=== PATIENT | male | born 1970 | race Caucasian/White ===

== ENCOUNTER 2021-01-29 20:51 | Emergency (ER) | payer BC ==
[~2021-01-29] VITALS: Ht 175.3 cm; Wt 118.2 kg
[~2021-01-29 20:51] MED LIST: ASPI-1265 PO; ATOR10TA87 PO; CYAN500T71 PO; LISI-222 PO; NORCO10T PO; PIOG30TA2 PO; SITA100T15 PO; [UNRECOGNIZED DRUG - SUPPLY] PO
[2021-01-29 22:14] LABS: BASOPHILS % (AUTO) 0.5 % (0-1); EOSINOPHILS # (AUTO) 0.1 X10'3 (0-0.9); HEMATOCRIT 43.6 % (42.0-52.0); HEMOGLOBIN 14.9 g/dl (14.0-17.9); LYMPHOCYTES # (AUTO) 1.3 X10'3 (1.1-4.8); LYMPHOCYTES % (AUTO) 20.4 % (21-51); MEAN CORPUSCULAR HEMOGLOBIN 30.3 PG (27.0-31.0); MEAN CORPUSCULAR HGB CONC 34.2 g/dL (33.0-36.5); MEAN CORPUSCULAR VOLUME 88.5 FL (78-98); MONOCYTES # (AUTO) 0.5 X10'3 (0-0.9); MONOCYTES % (AUTO) 7.2 % (2-12); NEUTROPHILS # (AUTO) 4.5 X10'3 (1.8-7.7); NEUTROPHILS % (AUTO) 70.9 % (42-75); PLATELET COUNT 260 X10'3 (140-440); RED BLOOD COUNT 4.93 X10'6 (4.70-6.10); RED CELL DISTRIBUTION WIDTH 12.8 % (11.5-14.5); WHITE BLOOD COUNT 6.4 X10'3 (4.5-11.0)
[2021-01-29 22:34] LABS: ALANINE AMINOTRANSFERASE 28 U/L (12-78); ALBUMIN 3.8 G/DL (3.4-5.0); ALBUMIN/GLOBULIN RATIO 1.2 (1.1-1.5); ALKALINE PHOSPHATASE 67 IU/L (46-116); ANION GAP 10 (8-16); ASPARTATE AMINO TRANSFERASE 15 U/L (10-37); BILIRUBIN,TOTAL 0.4 MG/DL (0.1-1.0); BLOOD UREA NITROGEN 12 MG/DL (7-18); BUN/CREATININE RATIO 12.6 (5.4-32.0); CALCIUM 8.5 MG/DL (8.5-10.1); CHLORIDE 103 MMOL/L (99-107); CREATININE 0.95 MG/DL (0.60-1.10); GLUCOSE 255 MG/DL (70-104); POTASSIUM 3.7 MMOL/L (3.5-5.1); SODIUM 139 MMOL/L (135-145); TOTAL CARBON DIOXIDE 25.6 MMOL/L (24-32); TOTAL PROTEIN 7.1 G/DL (6.4-8.2); eGFR 85 ML/MIN
[2021-01-30] VITALS (8 sets, daily range): BP systolic 124–147; BP diastolic 77–91
[2021-01-30] MEDS ORDERED: HYDROcodone/acetaminophen 10/325mg tab PO PRN (02:35)
[2021-01-30] MEDS ORDERED: metoprolol tartrate 1mg/ml inj IV PRN (02:35)
[2021-01-30] MEDS ORDERED: potassium Cl 20 mEq SR tablet PO PRN ×2 (02:35)
[2021-01-30] MEDS ORDERED: regadenoson 0.4mg/5ml syringe IV PRN (02:35)
[2021-01-30] MEDS ORDERED: magnesium 4gm in 100ml NS 100 ML IV PRN (02:35)
[2021-01-30] MEDS ORDERED: ondansetron/PF 4mg/2ml inj IV PRN (02:35)
[2021-01-30] MEDS ORDERED: potassium Cl 40MEQ/1/2NS 520ml 520 ML IV PRN ×2 (02:35)
[2021-01-30] MEDS ORDERED: HYDROcodone/acetaminophen 5mg/325mg tablet PO PRN (02:35)
[2021-01-30] MEDS ORDERED: magnesium 2GM in 50ml NS 50 ML IV PRN (02:35)
[2021-01-30] MEDS ORDERED: magnesium Cl slow-release 64mg tablet PO PRN (02:35)
[2021-01-30] MEDS ORDERED: acetaminophen 325mg tablet PO PRN ×2 (02:35)
[2021-01-30] MEDS ORDERED: aminophylline 250mg/10ml inj. IV PRN (02:35)
[2021-01-30] MEDS ORDERED: morphine 2 MG/ML inj. syringe IV PRN ×2 (02:35)
[2021-01-30] MEDS ORDERED: nitroGLYCERIN 0.4mg SUBLingual tab SL PRN (02:35)
[2021-01-30] MEDS ORDERED: dextrose 50%-water 50ml dispensing syringe IV PRN ×2 (02:40)
[2021-01-30] MEDS ORDERED: dextrose ORAL solution 15 GM/59 ML bottle PO PRN ×2 (02:40)
[2021-01-30] MEDS ORDERED: MESSAGE TO PHARMACY PO ONE (02:40)
[2021-01-30] MEDS ORDERED: insulin Lispro (HumaLOG) vial - multi-dose SQ SCH (02:40)
[2021-01-30] MEDS ORDERED: glucagon, human recombinant 1mg kit SUBCUT PRN (02:40)
--- NOTE | 2021-01-30 07:19 | NUR ---
PT RESTING ON BACK RR EQUAL AND UNLABORED
[2021-01-30] MEDS ORDERED: PERFLUTREN PROTEIN-A MICROSPHR (Optison) 0.22 MG/ML 3ML VIAL IV ONE (08:00)
[2021-01-30] MEDS ORDERED: aspirin 81mg tab.chew PO SCH (08:00)
[2021-01-30] MEDS ORDERED: K and/or MAG REPLACEMENT MC SCH (08:00)
[2021-01-30] MEDS ORDERED: heparin, porcine 5000 units/ml vial SQ SCH (08:00)
[2021-01-30] MEDS ORDERED: lisinopril 10 MG tablet PO SCH (10:35)
--- NOTE | 2021-01-30 12:14 | NUR ---
pt back from [employer] [facility]
--- NOTE | 2021-01-30 13:30 | NUR ---
PAGE SENT TO HOSPITALIST AFTER PT STATED HE WANTED TO LEAVE.
--- NOTE | 2021-01-30 13:45 | NUR ---
SECOND PAGE SENT. PT IRRITATED.
[2021-01-30] MEDS ORDERED: insulin glargine (Lantus) pen - multi-dose SQ SCH (21:00)
[2021-01-30] MEDS ORDERED: temazepam 15mg capsule PO PRN (21:00)
== END 2021-01-30 14:06 | disposition left against medical advice (07) ==
LOC: ER 20:51 → UNDOADMIN 01-30 02:36 → ED HOLD 01-30 02:36 → UNDODISIN 01-30 14:05
DX: I24.9 Acute ischemic heart disease, unspecified (principal); R42 Dizziness and giddiness; R55 Syncope and collapse; E11.65 Type 2 diabetes mellitus with hyperglycemia; I10 Essential (primary) hypertension; I25.10 Atherosclerotic heart disease of native coronary artery without angina pectoris; Z95.5 Presence of coronary angioplasty implant and graft; Z79.82 Long term (current) use of aspirin; Z79.899 Other long term (current) drug therapy; Z68.38 Body mass index [BMI] 38.0-38.9, adult
CPT/HCPCS: 36415; 71045; 78452; 80053; 83036; 83605; 83880; 84484; 85025; 87040; 93005; 93017; 99285; A9500; J2785; G0378; J1815

== ENCOUNTER 2022-08-15 08:15 | Outpatient (CLI) | payer BC ==
[~2022-08-15 08:15] MED LIST changes: -ATOR10TA87 PO; -CYAN500T71 PO; -LISI-222 PO; -NORCO10T PO; -PIOG30TA2 PO; -SITA100T15 PO; -[UNRECOGNIZED DRUG - SUPPLY] PO
[2022-08-15 08:48] LABS: BASOPHILS % (AUTO) 0.6 % (0-1); EOSINOPHILS # (AUTO) 0.1 X10'3 (0-0.9); EOSINOPHILS % (AUTO) 1.3 % (0-6); HEMATOCRIT 46.5 % (42.0-52.0); HEMOGLOBIN 15.6 g/dl (14.0-17.9); LYMPHOCYTES # (AUTO) 1.3 X10'3 (1.1-4.8); LYMPHOCYTES % (AUTO) 23.9 % (21-51); MEAN CORPUSCULAR HEMOGLOBIN 30.4 PG (27.0-31.0); MEAN CORPUSCULAR HGB CONC 33.6 g/dL (33.0-36.5); MEAN CORPUSCULAR VOLUME 90.4 FL (78-98); MEAN PLATELET VOLUME 6.9 FL (7.4-10.4); MONOCYTES # (AUTO) 0.4 X10'3 (0-0.9); MONOCYTES % (AUTO) 7.5 % (2-12); NEUTROPHILS # (AUTO) 3.5 X10'3 (1.8-7.7); NEUTROPHILS % (AUTO) 66.7 % (42-75); PLATELET COUNT 248 X10'3 (140-440); RED BLOOD COUNT 5.15 X10'6 (4.70-6.10); RED CELL DISTRIBUTION WIDTH 13.3 % (11.5-14.5); WHITE BLOOD COUNT 5.3 X10'3 (4.5-11.0)
[2022-08-15 08:58] LABS: ANION GAP 6 (8-16); BLOOD UREA NITROGEN 12 MG/DL (7-18); BUN/CREATININE RATIO 14.6 (5.4-32.0); CALCIUM 9.3 MG/DL (8.5-10.1); CHLORIDE 105 MMOL/L (99-107); CHOL/HDL RATIO 3.3 (0.00-4.99); CHOLESTEROL 171 MG/DL (0-200); CREATININE 0.82 MG/DL (0.60-1.10); GLUCOSE 172 MG/DL (70-104); HDL CHOLESTEROL 52 MG/DL (35-60); LDL CHOLESTEROL 103 MG/DL (50-100); POTASSIUM 4.5 MMOL/L (3.5-5.1); SODIUM 140 MMOL/L (135-145); TOTAL CARBON DIOXIDE 29.4 MMOL/L (24-32); TRIGLYCERIDES 57 MG/DL (20-135); eGFR > 90 ML/MIN
[2022-08-15 09:56] LABS: APTT 29 SECONDS (22-32)
[2022-08-16] MEDS ORDERED: ATOR40TA72 PO (15:20)
[2022-08-16] MEDS ORDERED: CHOL200012 PO (15:20)
[2022-08-16] MEDS ORDERED: DAPA10TA PO (15:20)
[2022-08-16] MEDS ORDERED: LISI20TA28 PO (15:20)
[2022-08-16] MEDS ORDERED: METO-395 PO (15:20)
== END 2022-08-15 23:59 | disposition home or self-care (01) ==
LOC: RAD 08:15
PROVIDERS: ATTEND Internal Medicine Interventional Cardiology
DX: I10 Essential (primary) hypertension (principal); E78.5 Hyperlipidemia, unspecified; I25.10 Atherosclerotic heart disease of native coronary artery without angina pectoris
CPT/HCPCS: 36415; 80048; 80061; 85025; 85610; 85730

== ENCOUNTER 2022-08-16 14:05 | Day surgery (SDC) | payer BC ==
[~2022-08-16] VITALS: Ht 175.3 cm; Wt 118.0 kg
[2022-08-16] VITALS (10 sets, daily range): BP systolic 99–134; BP diastolic 46–85
[2022-08-16] MEDS ORDERED: normal saline 1,000 ML IV SCH (14:30)
[2022-08-16] MEDS ORDERED: LORazepam 0.5 MG tablet PO PRN (14:30)
[2022-08-16] MEDS ORDERED: diphenhydrAMINE 25mg capsule PO PRN (14:30)
[2022-08-16] MEDS ORDERED: DAPA10TA PO (15:20)
[2022-08-16] MEDS ORDERED: ATOR40TA72 PO (15:20)
[2022-08-16] MEDS ORDERED: METO-395 PO (15:20)
[2022-08-16] MEDS ORDERED: CHOL200012 PO (15:20)
[2022-08-16] MEDS ORDERED: LISI20TA28 PO (15:20)
[2022-08-16] MEDS ORDERED: nitroGLYCERIN-Tridil 50MG/D5W 250 ML IV ONE (15:35)
[2022-08-16] MEDS ORDERED: LIDOcaine 1% (10mg/ml) 2ml vial ONE (15:35)
[2022-08-16] MEDS ORDERED: verapamil 2.5 mg/ml inj IV ONE (15:35)
[2022-08-16] MEDS ORDERED: midazolam 1 mg/ML 2ml injection ONE ×2 (15:35→16:04)
[2022-08-16] MEDS ORDERED: fentaNYL/PF 50MCG/1 ML 2ML syringe ONE (15:35)
[2022-08-16] MEDS ORDERED: heparin 1,000unit/ml 10ml vial 10 ML ONE (15:36)
[2022-08-16] MEDS ORDERED: iohexol 350MG/ML 100ml bottle IV ONE (15:36)
[2022-08-16] MEDS ORDERED: HYDROcodone/acetaminophen 5mg/325mg tablet PO PRN (17:10)
[2022-08-16] MEDS ORDERED: HYDROcodone/acetaminophen 10/325mg tab PO PRN (17:10)
== END 2022-08-16 19:00 | disposition home or self-care (01) ==
LOC: SSTAY O 14:05
PROVIDERS: ATTEND Student in an Organized Health Care Education/Training Program
DX: T82.855A Stenosis of coronary artery stent, initial encounter (principal); I25.10 Atherosclerotic heart disease of native coronary artery without angina pectoris; I10 Essential (primary) hypertension; E78.5 Hyperlipidemia, unspecified; E11.9 Type 2 diabetes mellitus without complications; Z79.82 Long term (current) use of aspirin; Z79.899 Other long term (current) drug therapy; Z88.0 Allergy status to penicillin; Z88.8 Allergy status to other drugs, medicaments and biological substances; Z87.891 Personal history of nicotine dependence; Y84.0 Cardiac catheterization as the cause of abnormal reaction of the patient, or of later complication, without mention of misadventure at the time of the procedure; Y92.89 Other specified places as the place of occurrence of the external cause
CPT/HCPCS: 82948; 93005; 93458; 93571; 99152; 99153; A6258; C1751; C1769; C1894; J1644; J2250; J3010; J3490; J7030; Q0163; Q9967; A6402

== ENCOUNTER 2022-08-29 05:43 | Inpatient (IN) | payer BC ==
[2022-08-26 14:20] LABS: CLARITY,URINE CLEAR (Clear); COLOR,URINE STRAW (Yellow); GLUCOSE, URINE >=1000 mg/dl (Neg); KETONES,URINE NEGATIVE (Neg); LEUKOCYTE ESTERASE ,URINE NEGATIVE (Neg); NITRITES, URINE NEGATIVE (Neg); OCCULT BLOOD,URINE NEGATIVE (Neg); PH,URINE 5.5 (4.8-8.0); PROTEIN,URINE NEGATIVE (Neg); UROBILINOGEN,URINE 0.2 E.U/dL (0.2-1.0)
[2022-08-26 14:21] LABS: BASOPHILS % (AUTO) 0.7 % (0-1); EOSINOPHILS # (AUTO) 0.1 X10'3 (0-0.9); EOSINOPHILS % (AUTO) 0.9 % (0-6); LYMPHOCYTES # (AUTO) 1.5 X10'3 (1.1-4.8); LYMPHOCYTES % (AUTO) 24.2 % (21-51); MEAN CORPUSCULAR HEMOGLOBIN 30.1 PG (27.0-31.0); MEAN CORPUSCULAR HGB CONC 33.4 g/dL (33.0-36.5); MEAN CORPUSCULAR VOLUME 90.1 FL (78-98); MEAN PLATELET VOLUME 6.9 FL (7.4-10.4); MONOCYTES # (AUTO) 0.5 X10'3 (0-0.9); MONOCYTES % (AUTO) 7.4 % (2-12); NEUTROPHILS # (AUTO) 4.2 X10'3 (1.8-7.7); NEUTROPHILS % (AUTO) 66.8 % (42-75); PRE OP HEMATOCRIT 46.2 % (42.0-52.0); PRE OP HEMOGLOBIN 15.5 g/dL (14.0-17.9); PRE OP PLATELET COUNT 267 X10'3 (140-440); RED BLOOD COUNT 5.13 X10'6 (4.70-6.10)
[2022-08-26 14:21] LABS: UA COLLECTION TYPE VOIDED
[2022-08-26 14:29] LABS: BACTERIA,URINE NONE SEEN /HPF (Neg); MUCUS STRANDS NONE SEEN /LPF (Neg); RBC,URINE NONE SEEN /HPF (0-2); SQUAMOUS EPITHELIAL CELL,UR FEW /LPF (FEW); WBC,URINE NONE SEEN /HPF (0-4)
[2022-08-26 14:34] LABS: PRE OP INR 1.1 INR; PRE OP PROTIME 10.9 SECONDS (9.0-12.0)
[2022-08-26 14:46] LABS: ALBUMIN 3.8 G/DL (3.4-5.0); ALBUMIN/GLOBULIN RATIO 1.1 (1.1-1.5); ALKALINE PHOSPHATASE 66 IU/L (46-116); BLOOD UREA NITROGEN 12 MG/DL (7-18); CALCIUM 9.3 MG/DL (8.5-10.1); CHLORIDE 104 MMOL/L (99-107); CREATININE 0.86 MG/DL (0.60-1.10); PRE OP ALT 29 U/L (30-65); PRE OP ANION GAP 5 (8-16); PRE OP AST 20 U/L (10-37); PRE OP BILIRUB, TOTAL 0.4 MG/DL (0.0-1.0); PRE OP GLUCOSE 157 MG/DL (70-104); PRE OP POTASSIUM 4.5 MMOL/L (3.4-5.1); PRE OP SODIUM 140 MMOL/L (135-145); TOTAL CARBON DIOXIDE 31.5 MMOL/L (24-32); TOTAL PROTEIN 7.2 G/DL (6.4-8.2); eGFR > 90 ML/MIN
[2022-08-26 14:49] LABS: HEMOGLOBIN A1C 7.4 % (4.5-6.2)
[2022-08-29] VITALS (17 sets, daily range): BP systolic 94–136; BP diastolic 39–74
[~2022-08-29] VITALS: Ht 175.3 cm; Wt 117.4 kg
[~2022-08-29 05:43] MED LIST changes: +ATOR40TA72 PO; +CHOL200012 PO; +DAPA10TA PO; +DOCUMENT DATE & TIME OF BETA-BLOCKER PO ONE; +Insulin Reg/NS 100units/100mL 100 ML IV SCH; +LISI20TA28 PO; +LORA-269 PO; +LORazepam 2 mg/ml vial IV ONE; +METO-395 PO; +albuterol 2.5 MG/3 ML nebule NEB ONE; +cefazolin 2gm/D5W 100mL 100 ML IV ONE; +famotidine 20mg tablet PO ONE; +metoprolol tartrate 12.5mg (1/2 tablet) PO ONE; +mupirocin 2% nasal ointment 1gm UD NS ONE; +ringers solution, lacted 1,000 ML IV SCH; +vancomycin 1,500 MG in NS 300ml IV soln IV ONE
[2022-08-29] MEDS ORDERED: epiNEPHrine 1 mg/ml inj ONE ×3 (06:41→16:20)
[2022-08-29] MEDS ORDERED: BUPIVAcaine/PF 5 mg/ml 10ml ONE (06:41)
[2022-08-29] MEDS ORDERED: ceFAZolin 1000mg inj ONE (06:41)
[2022-08-29] MEDS ORDERED: SUFENTANIL CITRATE 50 MCG/ML 2ml ampule IV ONE (07:22)
[2022-08-29] MEDS ORDERED: midazolam 1 mg/ML 2ml injection ONE (07:28)
[2022-08-29 08:06] LABS: ABG BASE EXCESS -0.6 mmol/L (-2.0-2.0); ABG HCO3 23.8 mmol/L (22.0-26.0); ABG OXYGEN SATURATION 97.1 % (94-97); ABG PCO2 (T) 38.8 mmHg (35.0-48.0); ABG PO2 (T) 87.7 mmHg (75.0-100.0); ALLEN'S TEST POSITIVE; FCOHb 0.8 % (0.0-3.9); FMetHb 0.3 % (0.0-1.5); TOTAL HEMOGLOBIN 16.2 G/dl (14.0-17.9)
[2022-08-29 08:49] LABS: ABG BASE EXCESS -1.2 mmol/L (-2.0-2.0); ABG HCO3 22.7 mmol/L (22.0-26.0); ABG OXYGEN SATURATION 99.6 % (94-97); ABG PCO2 35.5 mmHg (35.0-48.0); ABG PO2 255.8 mmHg (75.0-100.0); CL (ABG) 103 mmol/L (99-107); FCOHb 0.6 % (0.0-3.9); FMetHb 0.3 % (0.0-1.5); FO2Hb 98.7 % (94-97); GLUCOSE (ABG) 123 mg/dl (70-104); IONIZED CA (ABG) 1.14 mmol/L (1.10-1.30); K (ABG) 4.3 mmol/L (3.5-5.1)
[2022-08-29 09:56] LABS: ABG BASE EXCESS -1.8 mmol/L (-2.0-2.0); ABG OXYGEN SATURATION 99.6 % (94-97); ABG PCO2 39.1 mmHg (35.0-48.0); ABG PO2 247.2 mmHg (75.0-100.0); CL (ABG) 104 mmol/L (99-107); FCOHb 0.5 % (0.0-3.9); FMetHb 0.3 % (0.0-1.5); FO2Hb 98.8 % (94-97); GLUCOSE (ABG) 143 mg/dl (70-104); IONIZED CA (ABG) 1.13 mmol/L (1.10-1.30); K (ABG) 4.5 mmol/L (3.5-5.1); TOTAL HEMOGLOBIN 13.7 G/dl (14.0-17.9)
[2022-08-29] MEDS ORDERED: albumin (human) 25% 100 ML IV solution IV ONE (10:00)
[2022-08-29] MEDS ORDERED: LIDOcaine 2% (20 mg/ml) 5ml cardiac syringe ONE (10:00)
[2022-08-29] MEDS ORDERED: heparin 1,000 units/ml 10ml inj ONE (10:00)
[2022-08-29] MEDS ORDERED: aminocaproic acid 250 MG/1 ML inj. ONE (10:00)
[2022-08-29] MEDS ORDERED: calcium chloride 100 MG/1 ML inj IV ONE (10:00)
[2022-08-29] MEDS ORDERED: methylPREDNISolone sod succ 1000mg vial ONE (10:00)
[2022-08-29] MEDS ORDERED: sodium bicarbonate (8.4%) 1 mEq/ml syringe ONE (10:00)
[2022-08-29] MEDS ORDERED: mannitol 12.5gm/50mL VIAL IV ONE (10:00)
[2022-08-29] MEDS ORDERED: WATER IV ONE (10:00)
[2022-08-29] MEDS ORDERED: MAGNESIUM SULFATE IV ONE (10:00)
[2022-08-29] MEDS ORDERED: ipratropium/albuterol 3ml nebule IH PRN (10:05)
[2022-08-29 10:10] LABS: ABG BASE EXCESS 0.3 mmol/L (-2.0-2.0); ABG HCO3 23.9 mmol/L (22.0-26.0); ABG OXYGEN SATURATION 99.5 % (94-97); ABG PCO2 34.8 mmHg (35.0-48.0); ABG PO2 321.9 mmHg (75.0-100.0); CL (ABG) 100 mmol/L (99-107); FCOHb 0.1 % (0.0-3.9); FMetHb 0.3 % (0.0-1.5); FO2Hb 99.1 % (94-97); GLUCOSE (ABG) 147 mg/dl (70-104); IONIZED CA (ABG) 0.99 mmol/L (1.10-1.30); K (ABG) 3.9 mmol/L (3.5-5.1); TOTAL HEMOGLOBIN 11.3 G/dl (14.0-17.9)
[2022-08-29 10:40] LABS: ABG BASE EXCESS VENOUS -1.4 mmol/L (-2.0 - 2.0); ABG HCO3 VENOUS 24.6 mmol/L (21.0-28.0); ABG PCO2 VENOUS 46.9 mmHg (41.0-54.0); ABG PO2 VENOUS 49.4 mmHg (25.0-35.0); CL (ABG) 101 mmol/L (99-107); FCOHb VENOUS 0.6 %; FHHb VENOUS 15.5 %; FMetHb VENOUS 0.3 % (0.0 - 0.5); FO2Hb VENOUS 83.6 %; GLUCOSE (ABG) 139 mg/dl (70-104); IONIZED CA (ABG) 1.09 mmol/L (1.10-1.30); K (ABG) 4.3 mmol/L (3.5-5.1); TOTAL HEMOGLOBIN 12.1 G/dl (14.0-17.9)
[2022-08-29 11:11] LABS: ABG BASE EXCESS -2.6 mmol/L (-2.0-2.0); ABG HCO3 22.8 mmol/L (22.0-26.0); ABG OXYGEN SATURATION 99.4 % (94-97); ABG PO2 251.1 mmHg (75.0-100.0); CL (ABG) 102 mmol/L (99-107); FCOHb 0.2 % (0.0-3.9); FMetHb 0.3 % (0.0-1.5); FO2Hb 98.9 % (94-97); GLUCOSE (ABG) 126 mg/dl (70-104); IONIZED CA (ABG) 1.05 mmol/L (1.10-1.30); K (ABG) 4.2 mmol/L (3.5-5.1); TOTAL HEMOGLOBIN 11.5 G/dl (14.0-17.9)
[2022-08-29 11:36] LABS: ABG BASE EXCESS VENOUS 1.4 mmol/L (-2.0 - 2.0); ABG HCO3 VENOUS 27.1 mmol/L (21.0-28.0); ABG PCO2 VENOUS 47.9 mmHg (41.0-54.0); ABG PO2 VENOUS 38.6 mmHg (25.0-35.0); CL (ABG) 102 mmol/L (99-107); FCOHb VENOUS 0.8 %; FHHb VENOUS 24.6 %; FMetHb VENOUS 0.3 % (0.0 - 0.5); FO2Hb VENOUS 74.3 %; GLUCOSE (ABG) 116 mg/dl (70-104); IONIZED CA (ABG) 1.21 mmol/L (1.10-1.30); K (ABG) 3.9 mmol/L (3.5-5.1); TOTAL HEMOGLOBIN 11.7 G/dl (14.0-17.9)
[2022-08-29] MEDS ORDERED: magnesium 2GM in 50ml NS 50 ML IV PRN (11:55)
[2022-08-29] MEDS ORDERED: niCARDipine-NS 40mg/200ml IVPB 200 ML IV PRN (11:55)
[2022-08-29] MEDS ORDERED: potassium Cl 40MEQ/1/2NS 520ml 520 ML IV PRN (11:55)
[2022-08-29] MEDS ORDERED: potassium CL 10mEq/100ml bag 100 ML IV PRN (11:55)
[2022-08-29] MEDS ORDERED: metoclopramide 5 mg/ml inj IV PRN (11:55)
[2022-08-29] MEDS ORDERED: magnesium 4gm in 100ml NS 100 ML IV PRN (11:55)
[2022-08-29] MEDS ORDERED: acetaminophen 325mg tablet PO PRN ×2 (11:55)
[2022-08-29] MEDS ORDERED: magnesium hydroxide 30ml (MOM) UD suspension PO PRN (11:55)
[2022-08-29] MEDS ORDERED: ondansetron/PF 4mg/2ml inj IV PRN (11:55)
[2022-08-29] MEDS ORDERED: potassium Cl 40MEQ/270ML bag 250 ML IV PRN (11:55)
[2022-08-29] MEDS ORDERED: sodium phosphate inj. 30 MMOL in dextrose 5%-water 250 ML IV PRN (11:55)
[2022-08-29] MEDS ORDERED: nitroGLYCERIN-Tridil 50MG/D5W 250 ML IV SCH (11:55)
[2022-08-29] MEDS ORDERED: bisacodyl 10mg suppository rectal RC PRN (11:55)
[2022-08-29] MEDS ORDERED: sodium phosphate inj. 15 MMOL in dextrose 5%-water 250 ML IV PRN (11:55)
[2022-08-29] MEDS ORDERED: sodium chloride 0.45% 1,000 ML IV SCH (11:55)
[2022-08-29] MEDS ORDERED: mineral oil 133ml enema RC PRN (11:55)
[2022-08-29] MEDS ORDERED: Neutra Phos packet PO PRN (11:55)
[2022-08-29] MEDS ORDERED: dextrose 50%-water 50ml dispensing syringe IV PRN (11:55)
[2022-08-29] MEDS ORDERED: potassium Cl 20 mEq SR tablet PO PRN (11:55)
[2022-08-29] MEDS ORDERED: Insulin Reg/NS 100units/100mL 100 ML IV SCH (11:55)
[2022-08-29 12:26] LABS: ABG BASE EXCESS -1.9 mmol/L (-2.0-2.0); ABG HCO3 22.4 mmol/L (22.0-26.0); ABG OXYGEN SATURATION 97.2 % (94-97); ABG PCO2 (T) 36.3 mmHg (35.0-48.0); FCOHb 0.3 % (0.0-3.9); FMetHb 0.3 % (0.0-1.5); FO2Hb 96.6 % (94-97); PATIENT TEMPERATURE 36.7; PEEP 5 cm H2O; RESPIRATORY RATE 12 b/min; TIDAL VOLUME 600 mL; TOTAL HEMOGLOBIN 14.1 G/dl (14.0-17.9)
[2022-08-29] MEDS: morphine 4 MG/ML inj SYRINge IV PRN ×4 (12:35→23:58)
[2022-08-29 12:41] LABS: BASOPHILS % (AUTO) 0.2 % (0-1); EOSINOPHILS % (AUTO) 0.2 % (0-6); HEMATOCRIT 40.1 % (42.0-52.0); HEMOGLOBIN 13.5 g/dl (14.0-17.9); LYMPHOCYTES % (AUTO) 7.5 % (21-51); MEAN CORPUSCULAR HEMOGLOBIN 30.5 PG (27.0-31.0); MEAN CORPUSCULAR HGB CONC 33.8 g/dL (33.0-36.5); MEAN CORPUSCULAR VOLUME 90.2 FL (78-98); MEAN PLATELET VOLUME 6.7 FL (7.4-10.4); MONOCYTES # (AUTO) 0.6 X10'3 (0-0.9); MONOCYTES % (AUTO) 4.5 % (2-12); NEUTROPHILS # (AUTO) 11.3 X10'3 (1.8-7.7); NEUTROPHILS % (AUTO) 87.6 % (42-75); PLATELET COUNT 198 X10'3 (140-440); RED BLOOD COUNT 4.45 X10'6 (4.70-6.10); RED CELL DISTRIBUTION WIDTH 13.1 % (11.5-14.5); WHITE BLOOD COUNT 12.9 X10'3 (4.5-11.0)
[2022-08-29 12:50] LABS: APTT 29 SECONDS (22-32)
[2022-08-29] MEDS: albumin (Human) 5% 250ml 250 ML IV PRN ×3 (12:50→13:50)
[2022-08-29 12:51] LABS: ALANINE AMINOTRANSFERASE 17 U/L (12-78); ALBUMIN/GLOBULIN RATIO 1.3 (1.1-1.5); ALKALINE PHOSPHATASE 46 IU/L (46-116); ANION GAP 6 (8-16); ASPARTATE AMINO TRANSFERASE 28 U/L (10-37); BILIRUBIN,TOTAL 0.7 MG/DL (0.1-1.0); BLOOD UREA NITROGEN 8 MG/DL (7-18); CALCIUM 8.2 MG/DL (8.5-10.1); CHLORIDE 106 MMOL/L (99-107); CREATININE 0.73 MG/DL (0.60-1.10); GLUCOSE 137 MG/DL (70-104); MAGNESIUM 2.6 MG/DL (1.5-2.4); PHOSPHORUS 2.4 MG/DL (2.3-4.5); POTASSIUM 3.7 MMOL/L (3.5-5.1); SODIUM 138 MMOL/L (135-145); TOTAL CARBON DIOXIDE 26.4 MMOL/L (24-32); TOTAL PROTEIN 5.3 G/DL (6.4-8.2); eGFR > 90 ML/MIN
[2022-08-29 13:01] LABS: ACTIVATED CLOTTING TIME 137 SEC (101-148)
[2022-08-29 13:02] LABS: ACT @ 1.70 U 323 SEC (193-297); ACT @ 2.84 U 431 SEC (260-420); BASELINE ACT 151 SEC (101-148)
[2022-08-29] MEDS: potassium Cl 20mEq/100mL bag 100 ML IV PRN ×2 (13:21→19:23)
[2022-08-29] MEDS: ketorolac tromethamine 15mg/ml inj. IV SCH ×2 (13:28→19:21)
--- NOTE | 2022-08-29 13:45 | NUR ---
Patient arrived to room 2013 at 1210. Patient has x3 chest tubes with x2 atrium and draining. Patient placed on ICU monitors and placed on the ventilator. Patient VSS. Nitro going at 30.
[2022-08-29] MEDS: ceFAZolin/D5W- 1GM premix 50 ML IV SCH ×2 (15:42→23:57)
[2022-08-29] MEDS ORDERED: rocuronium 10mg/ml inj IV ONE (16:20)
[2022-08-29] MEDS ORDERED: etomidate 2mg/ml inj. ONE (16:20)
[2022-08-29] MEDS ORDERED: LIDOcaine 2% (20mg/ml) 5ml vial ONE (16:20)
[2022-08-29] MEDS ORDERED: acetaminophen 1,000mg/100ml IV 100 ML IV ONE (16:20)
[2022-08-29] MEDS ORDERED: phenylephrine 10mg/ml inj. -priapism dosing ONE (16:20)
--- NOTE | 2022-08-29 17:21 | NUR ---
Called Dr. Irvin regarding patient's weaning parameters (VC 547, RSBI 95, NIF -24). He stated to hold off on extubation until patient has better parameters. Dr. Irvin also informed of the patient's low SBP in the 90s and all three albumin orders have already been given. He stated to give another.
[2022-08-29] MEDS ORDERED: albumin (Human) 5% 250ml 250 ML IV ONE (17:30)
[2022-08-29 17:51] LABS: BASOPHILS % (AUTO) 0.1 % (0-1); EOSINOPHILS % (AUTO) 0 % (0-6); HEMATOCRIT 37.1 % (42.0-52.0); HEMOGLOBIN 12.6 g/dl (14.0-17.9); LYMPHOCYTES # (AUTO) 0.4 X10'3 (1.1-4.8); MEAN CORPUSCULAR HEMOGLOBIN 30.7 PG (27.0-31.0); MEAN CORPUSCULAR HGB CONC 33.9 g/dL (33.0-36.5); MEAN CORPUSCULAR VOLUME 90.7 FL (78-98); MEAN PLATELET VOLUME 7.2 FL (7.4-10.4); MONOCYTES # (AUTO) 0.4 X10'3 (0-0.9); MONOCYTES % (AUTO) 2.9 % (2-12); NEUTROPHILS # (AUTO) 12.1 X10'3 (1.8-7.7); PLATELET COUNT 213 X10'3 (140-440); RED BLOOD COUNT 4.09 X10'6 (4.70-6.10); RED CELL DISTRIBUTION WIDTH 13.2 % (11.5-14.5); WHITE BLOOD COUNT 12.9 X10'3 (4.5-11.0)
--- NOTE | 2022-08-29 18:16 | NUR ---
Patient in room CICU 2013. I have received report from Natividad LATIF and had the opportunity to ask questions and assume patient care.
[2022-08-29 18:25] LABS: ALBUMIN 3.6 G/DL (3.4-5.0); ANION GAP 9 (8-16); BLOOD UREA NITROGEN 11 MG/DL (7-18); BUN/CREATININE RATIO 13.9 (10.0-20.0); CALCIUM 8.1 MG/DL (8.5-10.1); CHLORIDE 108 MMOL/L (99-107); CREATININE 0.79 MG/DL (0.60-1.10); GLUCOSE 174 MG/DL (70-104); MAGNESIUM 2.3 MG/DL (1.5-2.4); SODIUM 140 MMOL/L (135-145); TOTAL CARBON DIOXIDE 22.9 MMOL/L (24-32); eGFR > 90 ML/MIN
[2022-08-29 18:27] LABS: PHOSPHORUS 2.4 MG/DL (2.3-4.5); POTASSIUM 4.2 MMOL/L (3.5-5.1)
[2022-08-29] MEDS: vancomycin/NS 1 GM ADD-VANTAGE 250 ML IV SCH (19:20)
[2022-08-29] MEDS: mupirocin 2% nasal ointment 1gm UD NS SCH (19:21)
[2022-08-29] MEDS: atorvastatin 10mg tablet PO SCH (19:21)
[2022-08-29] MEDS: sennosides/docusate sodium tablet PO SCH (19:21)
[2022-08-29 21:10] LABS: ABG BASE EXCESS -2.5 mmol/L (-2.0-2.0); ABG HCO3 22.3 mmol/L (22.0-26.0); ABG OXYGEN SATURATION 96.4 % (94-97); ABG PCO2 (T) 38.7 mmHg (35.0-48.0); ABG PO2 (T) 85.7 mmHg (75.0-100.0); FCOHb 0.1 % (0.0-3.9); FMetHb 0.2 % (0.0-1.5); FO2Hb 96.1 % (94-97); PEEP 5 cm H2O; TOTAL HEMOGLOBIN 12.6 G/dl (14.0-17.9)
[2022-08-29] MEDS: morphine 2 MG/ML inj. syringe IV PRN (22:27)
[2022-08-30] VITALS (24 sets, daily range): BP systolic 97–133; BP diastolic 52–85
[2022-08-30] MEDS: ketorolac tromethamine 15mg/ml inj. IV SCH ×2 (01:48→08:26)
[2022-08-30] MEDS: morphine 2 MG/ML inj. syringe IV PRN (01:48)
[2022-08-30 02:41] LABS: BASOPHILS % (AUTO) 0.1 % (0-1); EOSINOPHILS % (AUTO) 0 % (0-6); HEMATOCRIT 35.3 % (42.0-52.0); LYMPHOCYTES # (AUTO) 0.5 X10'3 (1.1-4.8); LYMPHOCYTES % (AUTO) 3.5 % (21-51); MEAN CORPUSCULAR HEMOGLOBIN 30.8 PG (27.0-31.0); MEAN CORPUSCULAR HGB CONC 33.9 g/dL (33.0-36.5); MEAN CORPUSCULAR VOLUME 90.8 FL (78-98); MEAN PLATELET VOLUME 7.5 FL (7.4-10.4); MONOCYTES # (AUTO) 1.1 X10'3 (0-0.9); MONOCYTES % (AUTO) 7.6 % (2-12); NEUTROPHILS # (AUTO) 12.4 X10'3 (1.8-7.7); NEUTROPHILS % (AUTO) 88.8 % (42-75); PLATELET COUNT 212 X10'3 (140-440); RED BLOOD COUNT 3.89 X10'6 (4.70-6.10); RED CELL DISTRIBUTION WIDTH 13.3 % (11.5-14.5); WHITE BLOOD COUNT 13.9 X10'3 (4.5-11.0)
[2022-08-30 03:00] LABS: ALANINE AMINOTRANSFERASE 16 U/L (12-78); ALBUMIN 3.7 G/DL (3.4-5.0); ALBUMIN/GLOBULIN RATIO 1.6 (1.1-1.5); ALKALINE PHOSPHATASE 38 IU/L (46-116); ANION GAP 7 (8-16); BILIRUBIN,TOTAL 0.4 MG/DL (0.1-1.0); BLOOD UREA NITROGEN 13 MG/DL (7-18); BUN/CREATININE RATIO 22.4 (10.0-20.0); CALCIUM 8.2 MG/DL (8.5-10.1); CHLORIDE 109 MMOL/L (99-107); CREATININE 0.58 MG/DL (0.60-1.10); GLUCOSE 104 MG/DL (70-104); MAGNESIUM 2.6 MG/DL (1.5-2.4); SODIUM 140 MMOL/L (135-145); TOTAL CARBON DIOXIDE 24.3 MMOL/L (24-32); eGFR > 90 ML/MIN
[2022-08-30 03:08] LABS: ASPARTATE AMINO TRANSFERASE 36 U/L (10-37); PHOSPHORUS 2.9 MG/DL (2.3-4.5); POTASSIUM 4.8 MMOL/L (3.5-5.1)
[2022-08-30] MEDS: HYDROcodone/acetaminophen 10/325mg tab PO PRN ×5 (05:16→21:49)
--- NOTE | 2022-08-30 06:00 | NUR ---
Patient in room CICU 2013. I have received report from Jacky LATIF and had the opportunity to ask questions and assume patient care.
--- NOTE | 2022-08-30 06:16 | NUR ---
Problems reprioritized. Patient report given, questions answered & plan of care reviewed with Mariana LATIF.
[2022-08-30] MEDS: cholecalciferol (vitamin D3) 1,000 unit (25mcg) tablet PO SCH (08:22)
[2022-08-30] MEDS: metoprolol tartrate 12.5mg (1/2 tablet) PO SCH ×2 (08:23→20:57)
[2022-08-30] MEDS: aspirin 81mg tab.chew PO SCH (08:23)
[2022-08-30] MEDS: mupirocin 2% nasal ointment 1gm UD NS SCH ×2 (08:24→20:58)
[2022-08-30] MEDS: vancomycin/NS 1 GM ADD-VANTAGE 250 ML IV SCH ×2 (08:24→20:57)
[2022-08-30] MEDS: ceFAZolin/D5W- 1GM premix 50 ML IV SCH ×2 (08:24→16:03)
[2022-08-30] MEDS: sennosides/docusate sodium tablet PO SCH ×2 (08:25→20:58)
--- NOTE | 2022-08-30 10:59 | NUR ---
Nutrition consult: Pt POD #1 s/p CABG x 4. Noted most recent lipid panel (08/15) is WNL with the exception of slightly elevated LDL (103 mg/dL). Per EMR pt with T2DM, well controlled with A1c 7.4%. Pt would benefit from post CABG and DM nutrition therapy educations as appropriate. Will continue to follow. Addendum: 08/30/22 at [address] Amended: Links added.
--- NOTE | 2022-08-30 13:37 | NUR ---
Patient in room CICU 2013. I have received report from SALOMON Peña and had the opportunity to ask questions and assume patient care. Pt back to bed after lunch.
--- NOTE | 2022-08-30 13:42 | NUR ---
Patient report given to Shahzad LATIF.
[2022-08-30] MEDS: morphine 4 MG/ML inj SYRINge IV PRN ×2 (15:00→21:01)
--- NOTE | 2022-08-30 17:45 | NUR ---
Pacer wires isolated for ambulation.
--- NOTE | 2022-08-30 18:20 | NUR ---
Problems reprioritized. Patient report given, questions answered & plan of care reviewed with SALOMON Brewer.
[2022-08-30] MEDS: atorvastatin 10mg tablet PO SCH (20:58)
[2022-08-30] MEDS: insulin glargine (Lantus) pen - multi-dose SQ PRN (21:45)
[2022-08-31] VITALS (16 sets, daily range): BP systolic 91–127; BP diastolic 49–72
[2022-08-31] MEDS: ceFAZolin/D5W- 1GM premix 50 ML IV SCH (00:15)
[2022-08-31] MEDS: HYDROcodone/acetaminophen 10/325mg tab PO PRN ×5 (02:30→20:36)
[2022-08-31] MEDS: morphine 4 MG/ML inj SYRINge IV PRN (03:08)
[2022-08-31 03:21] LABS: BASOPHILS % (AUTO) 0.2 % (0-1); EOSINOPHILS % (AUTO) 0.1 % (0-6); HEMATOCRIT 34.2 % (42.0-52.0); HEMOGLOBIN 11.5 g/dl (14.0-17.9); MEAN CORPUSCULAR HEMOGLOBIN 30.6 PG (27.0-31.0); MEAN CORPUSCULAR HGB CONC 33.8 g/dL (33.0-36.5); MEAN CORPUSCULAR VOLUME 90.5 FL (78-98); MEAN PLATELET VOLUME 6.9 FL (7.4-10.4); MONOCYTES # (AUTO) 0.8 X10'3 (0-0.9); MONOCYTES % (AUTO) 6.8 % (2-12); NEUTROPHILS # (AUTO) 9.3 X10'3 (1.8-7.7); NEUTROPHILS % (AUTO) 83.9 % (42-75); PLATELET COUNT 154 X10'3 (140-440); RED BLOOD COUNT 3.78 X10'6 (4.70-6.10); WHITE BLOOD COUNT 11.1 X10'3 (4.5-11.0)
[2022-08-31 03:25] LABS: ALBUMIN 3.2 G/DL (3.4-5.0); ANION GAP 4 (8-16); BLOOD UREA NITROGEN 14 MG/DL (7-18); BUN/CREATININE RATIO 20.9 (10.0-20.0); CALCIUM 8.6 MG/DL (8.5-10.1); CHLORIDE 103 MMOL/L (99-107); CREATININE 0.67 MG/DL (0.60-1.10); GLUCOSE 162 MG/DL (70-104); PHOSPHORUS 2.7 MG/DL (2.3-4.5); POTASSIUM 4.4 MMOL/L (3.5-5.1); SODIUM 135 MMOL/L (135-145); TOTAL CARBON DIOXIDE 27.8 MMOL/L (24-32); eGFR > 90 ML/MIN
[2022-08-31] MEDS: sennosides/docusate sodium tablet PO SCH ×2 (07:44→20:34)
[2022-08-31] MEDS: aspirin 81mg tab.chew PO SCH (07:45)
[2022-08-31] MEDS: pantoprazole 40mg Tablet.DR PO SCH (07:45)
[2022-08-31] MEDS: mupirocin 2% nasal ointment 1gm UD NS SCH (07:45)
[2022-08-31] MEDS: cholecalciferol (vitamin D3) 1,000 unit (25mcg) tablet PO SCH (07:45)
[2022-08-31] MEDS: metoprolol tartrate 12.5mg (1/2 tablet) PO SCH ×2 (07:45→20:35)
[2022-08-31] MEDS ORDERED: potassium Cl 20mEq/100mL bag 100 ML IV PRN (08:00)
[2022-08-31] MEDS ORDERED: potassium Cl 40MEQ/270ML bag 250 ML IV PRN (08:00)
[2022-08-31] MEDS ORDERED: potassium Cl 20 mEq SR tablet PO PRN ×2 (08:00)
[2022-08-31] MEDS ORDERED: potassium Cl 40MEQ/1/2NS 520ml 520 ML IV PRN (08:00)
[2022-08-31] MEDS ORDERED: potassium CL 10mEq/100ml bag 100 ML IV PRN (08:00)
[2022-08-31] MEDS ORDERED: magnesium 2GM in 50ml NS 50 ML IV PRN (08:00)
[2022-08-31] MEDS ORDERED: magnesium 4gm in 100ml NS 100 ML IV PRN (08:00)
[2022-08-31] MEDS ORDERED: furosemide 40mg/4ml inj IV ONE (08:05)
[2022-08-31] MEDS: magnesium Cl slow-release 64mg tablet PO SCH ×2 (08:17→20:35)
--- NOTE | 2022-08-31 13:26 | NUR ---
Report called to Juan LATIF. Patient transferred to 3013A. All belongings present and accounted for. at bedside.
--- NOTE | 2022-08-31 15:31 | NUR ---
Nutrition consult: Educations deferred at this time d/t staffing. Will f/u tomorrow. Addendum: 08/31/22 at [address] Amended: Links added.
[2022-08-31] MEDS: heparin, porcine 5000 units/ml vial SQ SCH ×2 (16:11→23:56)
--- NOTE | 2022-08-31 18:00 | NUR ---
Patient in room PCU 3013. I have received report from Juan LATIF and had the opportunity to ask questions and assume patient care.
[2022-08-31] MEDS: insulin Lispro (HumaLOG) vial - multi-dose SQ SCH (19:32)
[2022-08-31] MEDS: atorvastatin 10mg tablet PO SCH (20:35)
[2022-08-31] MEDS: insulin glargine (Lantus) pen - multi-dose SQ PRN (22:22)
[2022-08-31] MEDS: Melatonin 3mg tablet PO SCH (23:55)
[2022-09-01] MEDS: HYDROcodone/acetaminophen 10/325mg tab PO PRN ×4 (00:10→20:17)
[2022-09-01 06:17] LABS: BASOPHILS % (AUTO) 0.3 % (0-1); EOSINOPHILS # (AUTO) 0.1 X10'3 (0-0.9); EOSINOPHILS % (AUTO) 0.7 % (0-6); HEMATOCRIT 35.7 % (42.0-52.0); HEMOGLOBIN 12.3 g/dl (14.0-17.9); LYMPHOCYTES # (AUTO) 1.1 X10'3 (1.1-4.8); LYMPHOCYTES % (AUTO) 14.8 % (21-51); MEAN CORPUSCULAR HEMOGLOBIN 31.1 PG (27.0-31.0); MEAN CORPUSCULAR HGB CONC 34.4 g/dL (33.0-36.5); MEAN CORPUSCULAR VOLUME 90.5 FL (78-98); MEAN PLATELET VOLUME 7.1 FL (7.4-10.4); MONOCYTES # (AUTO) 0.7 X10'3 (0-0.9); MONOCYTES % (AUTO) 8.5 % (2-12); NEUTROPHILS # (AUTO) 5.8 X10'3 (1.8-7.7); NEUTROPHILS % (AUTO) 75.7 % (42-75); PLATELET COUNT 171 X10'3 (140-440); RED BLOOD COUNT 3.94 X10'6 (4.70-6.10); RED CELL DISTRIBUTION WIDTH 13.3 % (11.5-14.5); WHITE BLOOD COUNT 7.7 X10'3 (4.5-11.0)
[2022-09-01 06:23] LABS: ALBUMIN 2.8 G/DL (3.4-5.0); ANION GAP 5 (8-16); BLOOD UREA NITROGEN 14 MG/DL (7-18); BUN/CREATININE RATIO 19.7 (10.0-20.0); CALCIUM 8.5 MG/DL (8.5-10.1); CHLORIDE 100 MMOL/L (99-107); CREATININE 0.71 MG/DL (0.60-1.10); GLUCOSE 137 MG/DL (70-104); POTASSIUM 3.7 MMOL/L (3.5-5.1); SODIUM 136 MMOL/L (135-145); eGFR > 90 ML/MIN
--- NOTE | 2022-09-01 06:42 | NUR ---
Problems reprioritized. Patient report given, questions answered & plan of care reviewed with Juan LATIF.
[2022-09-01 07:00] VITALS: BP 117/64
--- NOTE | 2022-09-01 07:38 | NUR ---
Patient in room PCU 3013. I have received report from Ivonne and had the opportunity to ask questions and assume patient care. Pt in chair with pillow for splinting. C/o pain, see MAR for PRN [place] administration. call light within reach.
[2022-09-01] MEDS: aspirin 81mg tab.chew PO SCH (08:22)
[2022-09-01] MEDS: magnesium Cl slow-release 64mg tablet PO SCH ×2 (08:22→20:00)
[2022-09-01] MEDS: metoprolol tartrate 12.5mg (1/2 tablet) PO SCH ×2 (08:22→20:57)
[2022-09-01] MEDS: pantoprazole 40mg Tablet.DR PO SCH (08:23)
[2022-09-01] MEDS: cholecalciferol (vitamin D3) 1,000 unit (25mcg) tablet PO SCH (08:24)
[2022-09-01] MEDS: sennosides/docusate sodium tablet PO SCH ×2 (08:24→20:00)
[2022-09-01] MEDS: heparin, porcine 5000 units/ml vial SQ SCH ×3 (08:25→23:13)
[2022-09-01 11:00] VITALS: BP 96/60
--- NOTE | 2022-09-01 12:24 | NUR ---
F/u for nutrition consult: Pt seen at bedside with SO present provided with written and verbal post CABG nutrition therapy education and written DM education. Pt states last known A1c was 7.0% about 1-1.5 months ago and denies questions about DM management at this time. Pt endorses a good appetite and states he is getting full from meals. Pt denies food allergies though with food preferences that were d/w dietary: no peas, sour cream, cream cheese, or milk to drink; likes green beans, asparagus, and extra sweetener with meals. Pt denies difficulty chewing/swallowing or feeding self with incision site. Pt reports large BM today. Pt provided with RD contact information and encouraged to reach out if needed. Will continue to follow. Addendum: 09/01/22 at [address] Amended: Links added.
[2022-09-01 15:00] VITALS: BP 100/62
[2022-09-01] MEDS ORDERED: HYDR-3972 PO (15:46)
--- NOTE | 2022-09-01 16:35 | NUR ---
Pt has been doing well on BS control. Pt is currently level 2 with a 1200 BS of 189 which was higher than usual. I forgot to administer insulin after lunch based on CC and BS. Will check his 1700 BS and make sure we correct value tonight.
[2022-09-01 19:00] VITALS: BP 102/72
[2022-09-01] MEDS: insulin Lispro (HumaLOG) vial - multi-dose SQ SCH (19:22)
[2022-09-01] MEDS: atorvastatin 10mg tablet PO SCH (20:57)
[2022-09-01] MEDS: Melatonin 3mg tablet PO SCH (22:00)
[2022-09-01 23:18] VITALS: BP 99/56
--- NOTE | 2022-09-01 23:35 | NUR ---
Problems reprioritized. Patient report given, questions answered & plan of care reviewed with Emelina LATIF.
--- NOTE | 2022-09-02 01:37 | NUR ---
Patient in room PCU 3013. I have received report from ARTUR LATIF and had the opportunity to ask questions and assume patient care. AGREE WITH ARTUR LATIF PATIENT ASSESSMENTS, TAKING OVER ASSIGNMENT UNTIL DAY SHIFT 09/02/22
[2022-09-02 02:00] VITALS: BP 94/63
[2022-09-02 07:02] LABS: BASOPHILS % (AUTO) 0.5 % (0-1); EOSINOPHILS # (AUTO) 0.1 X10'3 (0-0.9); EOSINOPHILS % (AUTO) 1.9 % (0-6); HEMOGLOBIN 12.3 g/dl (14.0-17.9); LYMPHOCYTES # (AUTO) 0.9 X10'3 (1.1-4.8); LYMPHOCYTES % (AUTO) 15.2 % (21-51); MEAN CORPUSCULAR HEMOGLOBIN 30.5 PG (27.0-31.0); MEAN CORPUSCULAR HGB CONC 34.1 g/dL (33.0-36.5); MEAN CORPUSCULAR VOLUME 89.5 FL (78-98); MEAN PLATELET VOLUME 6.8 FL (7.4-10.4); MONOCYTES # (AUTO) 0.5 X10'3 (0-0.9); MONOCYTES % (AUTO) 9.2 % (2-12); NEUTROPHILS # (AUTO) 4.2 X10'3 (1.8-7.7); NEUTROPHILS % (AUTO) 73.2 % (42-75); PLATELET COUNT 185 X10'3 (140-440); RED BLOOD COUNT 4.02 X10'6 (4.70-6.10); WHITE BLOOD COUNT 5.7 X10'3 (4.5-11.0)
[2022-09-02 07:18] LABS: ALBUMIN 2.8 G/DL (3.4-5.0); ANION GAP 5 (8-16); BLOOD UREA NITROGEN 12 MG/DL (7-18); BUN/CREATININE RATIO 18.8 (10.0-20.0); CALCIUM 8.6 MG/DL (8.5-10.1); CHLORIDE 101 MMOL/L (99-107); CREATININE 0.64 MG/DL (0.60-1.10); GLUCOSE 169 MG/DL (70-104); POTASSIUM 3.8 MMOL/L (3.5-5.1); SODIUM 136 MMOL/L (135-145); TOTAL CARBON DIOXIDE 29.8 MMOL/L (24-32); eGFR > 90 ML/MIN
[2022-09-02] MEDS: cholecalciferol (vitamin D3) 1,000 unit (25mcg) tablet PO SCH (07:52)
[2022-09-02] MEDS: sennosides/docusate sodium tablet PO SCH (07:52)
[2022-09-02] MEDS: magnesium Cl slow-release 64mg tablet PO SCH (07:52)
[2022-09-02] MEDS: pantoprazole 40mg Tablet.DR PO SCH (07:52)
[2022-09-02 07:53] VITALS: BP_SYST 132
[2022-09-02] MEDS: metoprolol tartrate 12.5mg (1/2 tablet) PO SCH (07:53)
[2022-09-02] MEDS: aspirin 81mg tab.chew PO SCH (07:53)
[2022-09-02] MEDS: HYDROcodone/acetaminophen 10/325mg tab PO PRN (07:54)
[2022-09-02] MEDS: heparin, porcine 5000 units/ml vial SQ SCH (08:00)
[2022-09-02] MEDS: insulin Lispro (HumaLOG) vial - multi-dose SQ SCH (09:27)
== END 2022-09-02 11:00 | disposition home or self-care (01) | DRG 236 ==
LOC: PAS IN 05:43 → CICU 2S 12:09 → PCU 3S 08-31 13:30
PROVIDERS: ADMIT Thoracic Surgery (Cardiothoracic Vascular Surgery); ATTEND Thoracic Surgery (Cardiothoracic Vascular Surgery)
PROC: 02100Z8 Bypass Coronary Artery, One Artery from Right Internal Mammary, Open Approach (ICD-10-PCS; 2022-08-29)
PROC: 021009W Bypass Coronary Artery, One Artery from Aorta with Autologous Venous Tissue, Open Approach (ICD-10-PCS; 2022-08-29)
PROC: 06BQ4ZZ Excision of Left Saphenous Vein, Percutaneous Endoscopic Approach (ICD-10-PCS; 2022-08-29)
PROC: 5A1221Z Performance of Cardiac Output, Continuous (ICD-10-PCS; 2022-08-29)
PROC: B24BZZ4 Ultrasonography of Heart with Aorta, Transesophageal (ICD-10-PCS; 2022-08-29)
PROC: 02110Z9 Bypass Coronary Artery, Two Arteries from Left Internal Mammary, Open Approach (ICD-10-PCS; principal; 2022-08-29 08:10)
DX: I25.10 Atherosclerotic heart disease of native coronary artery without angina pectoris (principal); E11.9 Type 2 diabetes mellitus without complications; E66.9 Obesity, unspecified; E78.5 Hyperlipidemia, unspecified; I10 Essential (primary) hypertension; Z98.61 Coronary angioplasty status; Z68.38 Body mass index [BMI] 38.0-38.9, adult
CPT/HCPCS: 93312; 93325; Z7506; Z7508; 36415; 36600; 71045; 71046; 80048; 80053; 81001; 82330; 82435; 82803; 82947; 82948; 83036; 83735; 84100; 84132; 84295; 85018; 85025; 85347; 85610; 85730; 86885; 86900; 86901; 86920; 87081; 93005; 93880; 93970; 94002; 94010; 94760; 97116; 97161; 97530; A4615; A4618; A6258; A6402; A6449; A7000; A7048; C1751; G0378; J0131; J0171; J0690; J1644; J1815; J1885; J1940; J2060; J2150; J2250; J2270; J2370; J2930; J3370; J3475; J3480; J3490; J7030; J7040; J7050; J7120; P9045; P9047

== ENCOUNTER 2022-10-12 10:49 | Emergency (ER) | payer BC ==
[~2022-10-12] VITALS: Ht 175.3 cm; Wt 113.6 kg
[~2022-10-12 10:49] MED LIST changes: -DOCUMENT DATE & TIME OF BETA-BLOCKER PO ONE; +HYDR-3972 PO; -Insulin Reg/NS 100units/100mL 100 ML IV SCH; -LISI20TA28 PO; -LORazepam 2 mg/ml vial IV ONE; -albuterol 2.5 MG/3 ML nebule NEB ONE; -cefazolin 2gm/D5W 100mL 100 ML IV ONE; -famotidine 20mg tablet PO ONE; -metoprolol tartrate 12.5mg (1/2 tablet) PO ONE; -mupirocin 2% nasal ointment 1gm UD NS ONE; -ringers solution, lacted 1,000 ML IV SCH; -vancomycin 1,500 MG in NS 300ml IV soln IV ONE
[2022-10-12 11:06] VITALS: BP 117/75
[2022-10-12] MEDS ORDERED: SULF1TAB49 PO (11:48)
[2022-10-12] MEDS ORDERED: MUPI22OI30 TOP (11:48)
== END 2022-10-12 12:29 | disposition home or self-care (01) ==
LOC: ER 10:49
DX: T81.49XA Infection following a procedure, other surgical site, initial encounter (principal); I11.9 Hypertensive heart disease without heart failure; E11.9 Type 2 diabetes mellitus without complications; Z88.8 Allergy status to other drugs, medicaments and biological substances; Z88.0 Allergy status to penicillin; Z79.899 Other long term (current) drug therapy; Z79.82 Long term (current) use of aspirin
CPT/HCPCS: 71120; 99283

== ENCOUNTER 2023-02-06 07:16 | Emergency (ER) | payer BC ==
[~2023-02-06] VITALS: Ht 175.3 cm; Wt 112.2 kg
[2023-02-06 07:17] VITALS: TEMP 99
[2023-02-06 07:41] LABS: BILIRUBIN,URINE NEGATIVE (Neg); CLARITY,URINE CLEAR (Clear); COLOR,URINE YELLOW (Yellow); GLUCOSE, URINE 500 mg/dl (Neg); KETONES,URINE 15 mg/dl (Neg); LEUKOCYTE ESTERASE ,URINE NEGATIVE (Neg); NITRITES, URINE NEGATIVE (Neg); OCCULT BLOOD,URINE TRACE-INTACT (Neg); PH,URINE 5.5 (4.8-8.0); PROTEIN,URINE TRACE mg/dl (Neg); UROBILINOGEN,URINE 0.2 E.U/dL (0.2-1.0)
[2023-02-06 07:42] LABS: BASOPHILS % (AUTO) 0.5 % (0-1); EOSINOPHILS % (AUTO) 0.3 % (0-6); HEMATOCRIT 50.2 % (42.0-52.0); HEMOGLOBIN 17.1 g/dl (14.0-17.9); LYMPHOCYTES # (AUTO) 0.6 X10'3 (1.1-4.8); LYMPHOCYTES % (AUTO) 14.1 % (21-51); MEAN CORPUSCULAR HEMOGLOBIN 30.8 PG (27.0-31.0); MEAN CORPUSCULAR VOLUME 90.5 FL (78-98); MEAN PLATELET VOLUME 6.8 FL (7.4-10.4); MONOCYTES # (AUTO) 0.4 X10'3 (0-0.9); MONOCYTES % (AUTO) 9.1 % (2-12); PLATELET COUNT 182 X10'3 (140-440); RED BLOOD COUNT 5.55 X10'6 (4.70-6.10); RED CELL DISTRIBUTION WIDTH 13.9 % (11.5-14.5); WHITE BLOOD COUNT 3.9 X10'3 (4.5-11.0)
[2023-02-06 07:46] LABS: UA COLLECTION TYPE CLN CATCH MIDSTREAM
[2023-02-06 07:53] LABS: BACTERIA,URINE FEW /HPF (Neg); HYALINE CASTS 0-3 /LPF (NEGATIVE); MUCUS STRANDS MODERATE /LPF (Neg); RBC,URINE 0-2 /HPF (0-2); SQUAMOUS EPITHELIAL CELL,UR FEW /LPF (FEW); WBC,URINE 0-4 /HPF (0-4)
[2023-02-06 07:58] LABS: ALANINE AMINOTRANSFERASE 59 U/L (12-78); ALBUMIN 3.9 G/DL (3.4-5.0); ALKALINE PHOSPHATASE 83 IU/L (46-116); ANION GAP 7 (8-16); ASPARTATE AMINO TRANSFERASE 30 U/L (10-37); BILIRUBIN,TOTAL 0.8 MG/DL (0.1-1.0); BLOOD UREA NITROGEN 13 MG/DL (7-18); BUN/CREATININE RATIO 14.1 (10.0-20.0); CALCIUM 9.1 MG/DL (8.5-10.1); CHLORIDE 101 MMOL/L (99-107); CREATININE 0.92 MG/DL (0.60-1.10); GLUCOSE 218 MG/DL (70-104); LIPASE 53 U/L (73-393); POTASSIUM 3.9 MMOL/L (3.5-5.1); SODIUM 135 MMOL/L (135-145); TOTAL CARBON DIOXIDE 27.1 MMOL/L (24-32); TOTAL PROTEIN 7.7 G/DL (6.4-8.2); eCRCL 96 ML/MIN; eGFR 87 ML/MIN
[2023-02-06] MEDS ORDERED: ketorolac trometh. 30mg/ml inj. IV ONE (08:00)
[2023-02-06] MEDS ORDERED: HYDROmorphone inj. 0.5 MG/0.5 ML DISP.SYRIN IV ONE (08:00)
[2023-02-06] MEDS ORDERED: normal saline 1000ml 1,000 ML IV SCH (08:00)
[2023-02-06] MEDS ORDERED: ondansetron/PF 4mg/2ml inj IV ONE (08:00)
--- NOTE | 2023-02-06 08:21 | NUR ---
PT TAKEN TO CT.
[2023-02-06] MEDS ORDERED: normal saline 1000ml 1,000 ML IV ONE (08:25)
[2023-02-06] MEDS ORDERED: IBUP-1984 PO (09:47)
[2023-02-06 10:23] VITALS: BP 100/78; PULSE 76; RESP 18; O2SAT 97
== END 2023-02-06 10:40 | disposition home or self-care (01) ==
LOC: ER 07:17
DX: R10.9 Unspecified abdominal pain (principal); R05.9 Cough, unspecified; I25.10 Atherosclerotic heart disease of native coronary artery without angina pectoris; I10 Essential (primary) hypertension; E11.9 Type 2 diabetes mellitus without complications; Z90.49 Acquired absence of other specified parts of digestive tract; Z95.5 Presence of coronary angioplasty implant and graft; Z88.0 Allergy status to penicillin; Z91.041 Radiographic dye allergy status; Z79.82 Long term (current) use of aspirin; Z79.899 Other long term (current) drug therapy
CPT/HCPCS: 36415; 74176; 80053; 81001; 83690; 85025; 96361; 96374; 96375; 99285; J1170; J1885; J2405; J7030

== ENCOUNTER 2023-02-19 01:10 | Emergency (ER) | payer BC ==
[~2023-02-19] VITALS: Ht 175.3 cm; Wt 118.2 kg
[2023-02-19] MEDS ORDERED: morphine 2 MG/ML inj. syringe IV ONE (02:10)
[2023-02-19] MEDS ORDERED: cyclobenzaprine 10mg tablet PO ONE (03:30)
[2023-02-19] MEDS ORDERED: morphine 4 MG/ML inj SYRINge IV ONE (03:30)
[2023-02-19] MEDS ORDERED: CYCL-1 PO (03:51)
[2023-02-19] MEDS ORDERED: HYDR-3973 PO ×3 (03:51→03:55)
[2023-02-19 04:04] VITALS: BP 124/70; PULSE 63; RESP 18; TEMP 97.9; O2SAT 99
[2023-02-19] MEDS ORDERED: OXYC-145 PO (22:19)
== END 2023-02-19 04:07 | disposition home or self-care (01) ==
LOC: ER 01:10
DX: M54.50 Low back pain, unspecified (principal); R10.9 Unspecified abdominal pain; I25.10 Atherosclerotic heart disease of native coronary artery without angina pectoris; E78.00 Pure hypercholesterolemia, unspecified; I10 Essential (primary) hypertension; E11.9 Type 2 diabetes mellitus without complications; Z95.5 Presence of coronary angioplasty implant and graft; Z90.49 Acquired absence of other specified parts of digestive tract; Z79.899 Other long term (current) drug therapy; Z79.82 Long term (current) use of aspirin; Z88.0 Allergy status to penicillin; Z91.041 Radiographic dye allergy status; E66.01 Morbid (severe) obesity due to excess calories; Z87.442 Personal history of urinary calculi
CPT/HCPCS: 96374; 96376; 99284; J2270

== ENCOUNTER 2023-02-19 20:01 | Emergency (ER) | payer BC ==
[~2023-02-19] VITALS: Ht 175.3 cm; Wt 115.8 kg
[~2023-02-19 20:01] MED LIST changes: +CYCL-1 PO; +HYDR-3973 PO
[2023-02-19 20:03] VITALS: BP 152/83; PULSE 82; TEMP 98.6; O2SAT 99
[2023-02-19] MEDS ORDERED: ondansetron 4mg rapidly disintigrating tab PO ONE (21:25)
[2023-02-19] MEDS ORDERED: HYDROmorphone 1 mg/ml syringe SQ ONE (21:25)
[2023-02-19 21:52] VITALS: RESP 16
[2023-02-19] MEDS ORDERED: OXYC-145 PO (22:19)
== END 2023-02-19 22:46 | disposition home or self-care (01) ==
LOC: ER 20:01
DX: M54.31 Sciatica, right side (principal); Z91.041 Radiographic dye allergy status; Z88.0 Allergy status to penicillin; Z79.2 Long term (current) use of antibiotics; Z79.899 Other long term (current) drug therapy
CPT/HCPCS: 72110; 96372; 99283; J1170